=== PATIENT | female | born 1975 | race Two or more races ===

== ENCOUNTER 2024-08-31 12:00 | Day surgery (SDC) | payer MEDICAID, SELFPAY ==
[2024-08-29 11:22] LABS: HCG Qualitative,Urine Negative
[2024-08-30 13:09] VITALS: BMI 29.5
[2024-08-31] VITALS (10 sets, daily range): BP systolic 94–111; BP diastolic 58–70; PULSE 53–69; RESP 13–21; TEMP 36.6–37.1; O2SAT 94–100; BMI 29.5
[2024-08-31] MEDS: fentaNYL CIT INJ 50 mCg/ML AMP 2ML (ASD USE ONLY) IV (12:45)
[2024-08-31] MEDS: MIDAZOLAM INJ 1 MG/ML VIAL 2 ML (ASD USE ONLY) 2 MG IV (12:45)
[2024-08-31] MEDS: RINGERS LACTATED 1000 ML 1,000 ML 100 ML IV (12:51)
== END 2024-08-31 14:03 | disposition home or self-care (01) ==
PROVIDERS: PCP Nurse Practitioner Primary Care; Referring Provider Surgery; Visit Provider Surgery
PROC: 0DBE8ZX Excision of Large Intestine, Via Natural or Artificial Opening Endoscopic, Diagnostic (ICD-10-PCS; CPT 45380; principal; 2024-08-31 13:00)
DX: Z12.11 Encounter for screening for malignant neoplasm of colon (principal)
CPT/HCPCS: 45378; 81025; J2250; J3010; J7120